=== PATIENT | female | born 1950 | race Two or more races ===

== ENCOUNTER 2024-01-03 12:15 | Inpatient (IN) | payer OTHER ==
[~2024-01-03] VITALS: Ht 157.5 cm; Wt 58.5 kg
[2024-01-03] MEDS ORDERED: WELLBUTRIN SR150 MG PO (15:16)
[2024-01-03] MEDS ORDERED: CARDIZEM30 MG PO (15:16)
[2024-01-03] MEDS ORDERED: BUSPIRONE HCL5 MG PO (15:17)
[2024-01-03] MEDS ORDERED: REMERON30 MG PO (15:17)
[2024-01-03] MEDS ORDERED: MINIVELLE1 EAC1 TOP (15:17)
[2024-01-03] MEDS ORDERED: CICLODAN90 GM TOP (15:18)
[2024-01-03] MEDS ORDERED: ESTRADIOL IL (15:19)
[2024-01-03] MEDS ORDERED: MONTELUKAST SOD10 MG PO (15:20)
[2024-01-03] MEDS ORDERED: PROAIR RESPICL90 MCG IH (15:21)
[2024-01-03] MEDS ORDERED: ALLEGRA-D 24 H1 EACH PO (15:22)
[2024-01-03] MEDS ORDERED: ATROVENT HFA12.9 GM IH (15:22)
[2024-01-08] MEDS ORDERED: CEPHALEXIN250 MG (08:27)
[2024-01-08] MEDS ORDERED: BUDESONIDE0.5 MG/21 (08:27)
[2024-01-08] MEDS ORDERED: LIDOCAINE HCL 1%/EPINEPHRINE 20ML VIAL IJ ONE (08:45)
[2024-01-08] MEDS ORDERED: PIPERACILLIN/TAZOBACTAM SODIUM 3.375 GM VIAL IV ONE ×2 (08:45→09:20)
[2024-01-08] MEDS ORDERED: BUPIVACAINE HCL 30 ML VIAL IJ ONE (08:45)
[2024-01-08] MEDS ORDERED: HEMOSTATIC MATRIX 1 KIT KIT TOP ONE (11:30)
[2024-01-08] MEDS ORDERED: SURGIFLO APPLICATOR 1 EACH APPL TOP ONE (11:30)
[2024-01-08] MEDS ORDERED: MORPHINE SULFATE 4 MG/ML VIAL IV ONE ×2 (12:40→13:10)
[2024-01-08] MEDS ORDERED: ONDANSETRON HCL 2 MG/ML VIAL IV PRN (12:45)
[2024-01-08] MEDS ORDERED: MORPHINE SULFATE 4 MG/ML CARTRIDGE IV PRN (12:45)
[2024-01-08] MEDS ORDERED: SUGAMMADEX SODIUM 200 MG/2 ML VIAL IV ONE (12:45)
[2024-01-08] MEDS ORDERED: OxyCODONE HCL 5 MG TABLET (ROXICODONE) PO PRN (12:45)
[2024-01-08] MEDS ORDERED: DEXTROSE 50 % IN WATER 0.5 G/ML DISP.SYRIN IV PRN (12:45)
[2024-01-08] MEDS ORDERED: RINGERS SOLUTION,LACTATED 1,000 ML IV SCH (12:45)
[2024-01-08] MEDS ORDERED: HYOSCYAMINE SULFATE 0.125 MG TAB.SUBL SL SCH (13:00)
[2024-01-08] MEDS ORDERED: ALBUTEROL SULFATE 3 ML/2.5 MG AMPUL.NEB IH SCH (14:00)
[2024-01-08] MEDS ORDERED: ENALAPRILAT DIHYDRATE 1.25 MG/ML VIAL IV PRN (14:00)
[2024-01-08] MEDS ORDERED: ACETAMINOPHEN 500 MG GEL..CAP PO SCH (14:00)
[2024-01-08 14:30] VITALS: BP 130/60; O2SAT 95
[2024-01-08 16:00] VITALS: BP 150/83; O2SAT 95
[2024-01-08] MEDS ORDERED: METOCLOPRAMIDE HCL 5 MG/ML VIAL IV SCH (17:00)
[2024-01-08] MEDS ORDERED: GABAPENTIN 300 MG CAPSULE PO SCH (17:00)
[2024-01-08] MEDS ORDERED: PIPERACILLIN/TAZOBACTAM SODIUM 3.375 GM VIAL IV SCH (18:00)
[2024-01-08] MEDS ORDERED: DILTIAZEM HCL 30 MG TABLET PO SCH (21:00)
[2024-01-08] MEDS ORDERED: FAMOTIDINE/PF 20 MG/2 ML VIAL IV PUSH SCH (21:00)
[2024-01-08] MEDS ORDERED: MONTELUKAST SODIUM 10 MG TABLET PO SCH (21:00)
[2024-01-08] MEDS ORDERED: CELECOXIB 200 MG CAPSULE PO SCH (21:00)
[2024-01-09] VITALS: BP 131/61; O2SAT 99
[2024-01-09 06:42] LABS: HEMATOCRIT 36.1 % (36.0-45.00); HEMOGLOBIN 12.8 g/dL (12.0-15.00); MEAN CELL VOLUME 88.5 fL (80.00-100.00); MEAN CORPUSCULAR HEMOGLOBIN 31.3 pg (27.00-32.0); MEAN CORPUSCULAR HGB CONC 35.4 g/dl (32.0-36.0); PLATELET COUNT 170 K/uL (150-450); RED BLOOD COUNT 4.08 M/uL (4.00-6.00); RED CELL DISTRIBUTION WIDTH 13.3 % (11.5-14.5)
[2024-01-09 07:14] LABS: CALCIUM 7.7 mg/dL (8.5-10.1); CREATININE SERUM 0.61 mg/dL (0.55-1.02); GFR 96.68; MAGNESIUM 1.5 mg/dL (1.8-2.4); PHOSPHOROUS 2.4 mg/dL (2.5-4.9); POTASSIUM 3.33 mEq/L (3.5-5.1)
[2024-01-09 08:00] VITALS: BP 134/72; O2SAT 95
[2024-01-09] MEDS ORDERED: BUPROPION HCL 150 MG TABLET.SA PO SCH (09:00)
[2024-01-09] MEDS ORDERED: LACTOBACILLUS ACIDOPHILUS 1 CAP CAP PO SCH (09:00)
[2024-01-09] MEDS ORDERED: MAGNESIUM SULFATE IN WATER 50 ML IV NR (10:30)
[2024-01-09] MEDS ORDERED: POTASSIUM CHLORIDE 20MEQ/100ML H2O PB IV NR (10:30)
[2024-01-09] MEDS ORDERED: POTASSIUM PHOS,M-BASIC-D-BASIC 3 MM/ML VIAL IV NR (10:30)
[2024-01-09 16:00] VITALS: BP 125/76; O2SAT 97
[2024-01-09] MEDS ORDERED: ENOXAPARIN SODIUM 40 MG/0.4 ML SYRINGE SUBCUTANEO SCH (17:00)
[2024-01-10 00:58] VITALS: BP 128/61; O2SAT 98
[2024-01-10 09:00] VITALS: BP 160/86; O2SAT 97
[2024-01-10] MEDS ORDERED: ALBUTEROL SULFATE 3 ML/2.5 MG AMPUL.NEB IH SCH (09:00)
[2024-01-10] MEDS ORDERED: ENOXAPARIN SODIUM 40 MG/0.4 ML SYRINGE SUBCUTANEO SCH (09:00)
[2024-01-10 09:17] LABS: HEMATOCRIT 36.1 % (36.0-45.00); HEMOGLOBIN 12.7 g/dL (12.0-15.00); MEAN CELL VOLUME 87.6 fL (80.00-100.00); MEAN CORPUSCULAR HEMOGLOBIN 30.8 pg (27.00-32.0); MEAN CORPUSCULAR HGB CONC 35.1 g/dl (32.0-36.0); PLATELET COUNT 187 K/uL (150-450); RED BLOOD COUNT 4.12 M/uL (4.00-6.00); RED CELL DISTRIBUTION WIDTH 13.8 % (11.5-14.5)
[2024-01-10 10:35] LABS: CALCIUM 8.6 mg/dL (8.5-10.1); CREATININE SERUM 0.6 mg/dL (0.55-1.02); GFR 98.55; MAGNESIUM 2.4 mg/dL (1.8-2.4); POTASSIUM 3.73 mEq/L (3.5-5.1)
[2024-01-10 10:49] LABS: PHOSPHOROUS 1.8 mg/dL (2.5-4.9)
[2024-01-10] MEDS ORDERED: POTASSIUM PHOS,M-BASIC-D-BASIC 45mM/15ml VIAL IV NR (11:00)
[2024-01-10] MEDS ORDERED: HYOSCYAMINE0.125 M1 SL (13:43)
[2024-01-10] MEDS ORDERED: INTESTINEX680 M1 PO (13:43)
[2024-01-10] MEDS ORDERED: MIRALAX17 GM PO (13:43)
== END 2024-01-10 15:20 | disposition home or self-care (01) | DRG 330 ==
LOC: O/R 01-08 05:25 → SURG 01-08 07:00 → SURH 01-08 13:31
PROVIDERS: Internal Medicine Geriatric Medicine; ADMIT Surgery; ATTEND Surgery
PROC: 0USG4ZZ Reposition Vagina, Percutaneous Endoscopic Approach (ICD-10-PCS; 2024-01-08)
PROC: 0DNP4ZZ Release Rectum, Percutaneous Endoscopic Approach (ICD-10-PCS; 2024-01-08)
PROC: 0TJB8ZZ Inspection of Bladder, Via Natural or Artificial Opening Endoscopic (ICD-10-PCS; 2024-01-08)
PROC: 8E0W4CZ Robotic Assisted Procedure of Trunk Region, Percutaneous Endoscopic Approach (ICD-10-PCS; 2024-01-08)
PROC: 0DSP4ZZ Reposition Rectum, Percutaneous Endoscopic Approach (ICD-10-PCS; principal; 2024-01-08 07:00)
DX: K56.1 Intussusception (principal); N39.0 Urinary tract infection, site not specified; N81.10 Cystocele, unspecified; N81.5 Vaginal enterocele; N81.6 Rectocele; I10 Essential (primary) hypertension; R11.10 Vomiting, unspecified; E83.42 Hypomagnesemia; E83.39 Other disorders of phosphorus metabolism